=== PATIENT | female | born 1990 | race American Indian/Alaskan Native ===

== ENCOUNTER 2019-11-20 13:48 | Emergency (ER) | payer MEDICAID ==
[2019-11-20 14:15] VITALS: BP 103/64
[2019-11-20 15:51] LABS: Basophils % (Auto) 0.5 % (0.0-1.8); Eosinophils # (Auto) 0.1 K/mm3 (0.0-0.4); Eosinophils % (Auto) 1.1 % (0.0-4.3); Hematocrit 41.9 % (30.3-42.9); Hemoglobin 14.4 gm/dl (10.1-14.3); Lymphocytes # (Auto) 1.9 K/mm3 (1.2-5.4); Lymphocytes % (Auto) 27.3 % (13.4-35.0); Mean Corpuscular HGB Conc 34 % (30-34); Mean Corpuscular Volume 96 fl (79-97); Monocytes # (Auto) 0.7 K/mm3 (0.0-0.8); Monocytes % (Auto) 10.1 % (0.0-7.3); Platelet Count 229 K/mm3 (140-440); Red Blood Count 4.37 M/mm3 (3.65-5.03); Red Cell Distribution Width 13.1 % (13.2-15.2)
[2019-11-20] MEDS ORDERED: ONDANSETRON 4 MG/2 ML INJ IV ONE (16:30)
[2019-11-20] MEDS ORDERED: SODIUM CHLORIDE 0.9% 1000 ML 1,000 ML IV ONE (16:30)
--- NOTE | 2019-11-20 16:36 | Emergency Department Report ---
HPI - HPI HPI: Room 24 The patient is a 29-year-old female present with a chief complaint of vaginal bleeding. The patient states she is approximately 7 weeks when she decided to have an elective . The patient states 2 days ago she was given methotrexate for an elective . The patient states later that night she developed nausea vomiting and vaginal bleeding intermittently. Patient states she was passing large clots of blood and has been going through approximately 6-7 pads per day. The patient states this morning she developed lower abdominal cramping nausea and vomiting. The patient states she had an ultrasound performed at the clinic prior to the methotrexate and her was intrauterine. <SHARA BOOTHE - Last Filed: 11/20/19 16:31> <AMBROSIO GOLD III - Last Filed: 11/20/19 21:13> - General Chief Complaint: Vaginal Bleeding Time Seen by Provider: 11/20/19 16:18 ED Past Medical Hx - Past Medical History Previous Medical History?: No - Surgical History Past Surgical History?: Yes Hx Breast Surgery: Yes - Family History Family history: no significant - Social History Smoking Status: Current Some Day Smoker Substance Use Type: None (Denies illicit drug use) <SHARA BOOTHE - Last Filed: 11/20/19 16:31> <AMBROSIO GOLD III - Last Filed: 11/20/19 21:13> - Medications Home Medications: Home Medications Medication Instructions Recorded Confirmed Last Taken Type Ondansetron [Zofran Odt] 4 mg PO Q6HR PRN #20 tab.rapdis 11/20/19 Unknown Rx Pnv No.121/Iron/Folic Acid 1 each PO DAILY 30 Days #30 tablet 11/20/19 Unknown Rx [ Multivitamin Tablet] ED Review of Systems ROS: Stated complaint: TROUBLE BREATHING/VAG BLEED Other details as noted in HPI Constitutional: chills, fever (Subjective) Respiratory: no symptoms reported Endocrine: no symptoms reported Gastrointestinal: abdominal pain, nausea, vomiting Genitourinary: abnormal menses <SHARA BOOTHE - Last Filed: 11/20/19 16:31> ROS: Stated complaint: TROUBLE BREATHING/VAG BLEED Other details as noted in HPI <AMBROSIO GOLD III - Last Filed: 11/20/19 21:13> Physical Exam - Physical Exam Vital Signs: Vital Signs 11/20/19 14:09 Temperature 97.9 F Pulse Rate 72 Respiratory 18 Rate Blood Pressure 103/64 O2 Sat by Pulse 99 Oximetry Physical Exam: GENERAL: The patient is well-developed well-nourished female sitting in room not appearing to be in acute distress. [] HEENT: Normocephalic. Atraumatic. Extraocular motions are intact. Patient has moist mucous membranes. NECK: Supple. Trachea midline CHEST/LUNGS: Clear to auscultation. There is no respiratory distress noted. HEART/CARDIOVASCULAR: Regular. There is no tachycardia. There is no gallop rub or murmur. ABDOMEN: Abdomen is soft, with tenderness to palpation in the left lower quadrant, suprapubic and right lower quadrant. There is no rebound or guarding. Patient has normal bowel sounds. There is no abdominal distention. SKIN: There is no rash. There is no edema. There is no diaphoresis. NEURO: The patient is awake, alert, and oriented. The patient is cooperative. The patient has normal speech and gait MUSCULOSKELETAL: There is no evidence of acute injury. <SHARA BOOTHE K - Last Filed: 11/20/19 16:31> - Physical Exam Vital Signs: Vital Signs 11/20/19 14:09 Temperature 97.9 F Pulse Rate 72 Respiratory 18 Rate Blood Pressure 103/64 O2 Sat by Pulse 99 Oximetry <AMBROSIO GOLD III - Last Filed: 11/20/19 21:13> ED Course Vital Signs 11/20/19 14:09 Temperature 97.9 F Pulse Rate 72 Respiratory 18 Rate Blood Pressure 103/64 O2 Sat by Pulse 99 Oximetry <SHARA BOOTHE - Last Filed: 11/20/19 16:31> Vital Signs 11/20/19 14:09 Temperature 97.9 F Pulse Rate 72 Respiratory 18 Rate Blood Pressure 103/64 O2 Sat by Pulse 99 Oximetry - Reevaluation(s) Reevaluation #1: Patient's care signed out to me from previous physician at 8 PM. I discussed all results and clinical findings with patient. I discussed plan of care with patient. Patient agrees with plan of care. Patient is stable for discharge. Patient will be discharged home. Patient given discharge instructions. Patient voiced understanding of discharge instructions. 11/20/19 21:05 <AMBROSIO GOLD III Last Filed: 11/20/19 21:13> ED Medical Decision Making - Lab Data Result diagrams: 11/20/19 15:09 - Differential Diagnosis Incomplete <SHARA BOOTHE - Last Filed: 11/20/19 16:31> - Lab Data Result diagrams: 11/20/19 15:09 - Radiology Data Radiology results: report reviewed Early obstetrical ultrasound INDICATION: 8 week 1 day , methotrexate therapy 2 days ago, vaginal bleeding TECHNIQUE: Transabdominal and endovaginal COMPARISON: None FINDINGS: Early intrauterine is noted with yolk sac and pole se en. heart rate was documented at 160 bpm. Estimated gestational age by crown-rump length is 8 weeks 0 days corres ponding to the clinical dating. No obvious implantational bleed is seen. No ob vious abnormalities are noted of the fetus or sac. Right ovary measures 4.3 cm in length and shows small follicular-type cysts. Left ovary measures 4.5 cm in length and shows small follicular-type cysts. Flow is noted in both ovaries. No adnexal masses are seen. Only a trace of free fluid is noted. IMPRESSION: Early intrauterine as above without obvious abnormality <AMBROSIO GOLD III - Last Filed: 11/20/19 21:13> Critical care attestation.: If time is entered above; I have spent that time in minutes in the direct care of this critically ill patient, excluding procedure time. <CHEVY BOOTHEKE Elizabeth - Last Filed: 11/20/19 16:31> Critical care attestation.: If time is entered above; I have spent that time in minutes in the direct care of this critically ill patient, excluding procedure time. <OLIVERMARY FERNIEAMBROSIO - Last Filed: 11/20/19 21:13> ED Disposition <TLSHARA Elizabeth - Last Filed: 11/20/19 16:31> Is pt being admited?: No Does the pt Need Aspirin: No Time of Disposition: 21:11 <CINTIAAMBROSIO EVANS III - Last Filed: 11/20/19 21:13> Clinical Impression: Incomplete , Nausea and vomiting during prior to 22 weeks gestation Qualifiers: Weeks of gestation: less than 8 weeks Qualified Code(s): Z3A.01 - Less than 8 weeks gestation of Nausea & vomiting Qualifiers: Vomiting type: unspecified Vomiting Intractability: non-intractable Qualified Code(s): R11.2 - Nausea with vomiting, unspecified Disposition: DC-01 TO HOME OR SELFCARE Condition: Stable Instructions: Spontaneous Miscarriage (ED), Dilation and Curettage (ED) Additional Instructions: Patient to follow-up with primary care in 2 to 3 days. Patient to follow-up with [facility]PER[facility] or clinic in 2 to 3 days. Patient to rest. Patient to increase water. Patient to avoid strenuous exercise or heavy lifting until cleared by [facility]ING MACHINE OPERATOR. Patient to take Tylenol or ibuprofen as needed for pain. Patient to continue medications as instructed by her clinic. Patient to return to the ER if condition worsens, changes or new symptoms arise. Prescriptions: Pnv No.121/Iron/Folic Acid [ Multivitamin Tablet] 1 each PO DAILY 30 Days #30 tablet Ondansetron [Zofran Odt] 4 mg PO Q6HR PRN #20 tab.rapdis PRN Reason: Nausea And Vomiting Referrals: SEE HANSON MD [Primary Care Provider] - 2-3 Days KWAKU STALEY MD [Staff Physician] - 2-3 Days Forms: Methotrexate D/C Instructions
[2019-11-20] MEDS ORDERED: fentaNYL 100 MCG/2 ML INJ IV ONE (16:50)
--- NOTE | 2019-11-20 20:15 | Ultrasound Report ---
Early obstetrical ultrasound INDICATION: 8 week 1 day , methotrexate therapy 2 days ago, vaginal bleeding TECHNIQUE: Transabdominal and endovaginal COMPARISON: None FINDINGS: Early intrauterine is noted with yolk sac and pole seen. heart rate w as documented at 160 bpm. Estimated gestational age by crown-rump length is 8 weeks 0 days correspond ing to the clinical dating. No obvious implantational bleed is seen. No obvious abnormalities are not ed of the fetus or sac. Right ovary measures 4.3 cm in length and shows small follicular-type cysts. Left ovary measures 4.5 cm in length and shows small follicular-type cysts. Flow is noted in both ovaries. No adnexal masses are seen. Only a trace of free fluid is noted. IMPRESSION: Early intrauterine as above without obvious abnormality Signer Name: Manny Dunlap MD Signed: 11/20/2019 8:10 PM Workstation Name: [id number]
== END 2019-11-20 21:23 | disposition home or self-care (01) ==
LOC: ED 13:48
DX: O03.4 Incomplete spontaneous abortion without complication (principal); O21.8 Other vomiting complicating pregnancy; F17.200 Nicotine dependence, unspecified, uncomplicated; Z98.890 Other specified postprocedural states; Z79.899 Other long term (current) drug therapy; Z3A.08 8 weeks gestation of pregnancy
CPT/HCPCS: 36415; 76801; 76817; 84702; 85025; 86900; 86901; 96361; 96374; 96375; 99284; J2405; J3010; J7030

== ENCOUNTER 2020-07-29 21:24 | Emergency (ER) | payer MEDICAID ==
[2020-07-29 23:26] VITALS: BP 113/69
[2020-07-29 23:49] LABS: Bacteria,Urine 1+ /HPF (Negative); Bilirubin,Urine NEG (Negative); Blood,Urine NEG (Negative); Color,Urine Yellow (Yellow); Mucus,Urine FEW /HPF; Protein,Urine <15 mg/dL mg/dL (Negative)
[2020-07-29] MEDS ORDERED: SODIUM CHLORIDE 0.9% 1000 ML 1,000 ML IV ONE (23:57)
[2020-07-29] MEDS ORDERED: ONDANSETRON 4 MG/2 ML INJ IV ONE (23:57)
[2020-07-30 00:11] LABS: Basophils % (Auto) 0.4 % (0.0-1.8); Eosinophils # (Auto) 0.4 K/mm3 (0.0-0.4); Eosinophils % (Auto) 4.9 % (0.0-4.3); Hematocrit 41.2 % (30.3-42.9); Hemoglobin 14.2 gm/dl (10.1-14.3); Lymphocytes # (Auto) 3.2 K/mm3 (1.2-5.4); Mean Corpuscular HGB Conc 34 % (30-34); Mean Corpuscular Volume 95 fl (79-97); Monocytes # (Auto) 0.8 K/mm3 (0.0-0.8); Monocytes % (Auto) 9.2 % (0.0-7.3); Platelet Count 227 K/mm3 (140-440); Red Blood Count 4.32 M/mm3 (3.65-5.03)
[2020-07-30 00:30] LABS: Alanine Aminotransferase 17 units/L (7-56); Albumin 4.5 g/dL (3.9-5); Blood Urea Nitrogen 8 mg/dL (7-17); Calcium 9.4 mg/dL (8.4-10.2); Hemolysis Index 1
[2020-07-30 00:36] LABS: BUN/Creatinine Ratio 16
--- NOTE | 2020-07-30 01:44 | Emergency Department Report ---
ED N/V/D HPI - General Chief complaint: Abdominal Pain Stated complaint: WEAKNESS/NAUSEA/VOMITING Time Seen by Provider: 07/29/20 23:48 Source: patient Mode of arrival: Ambulatory Limitations: No Limitations - History of Present Illness Initial comments: Patient is a 30-year-old -[place] female who presents for abdominal pain and cramping x3 weeks, patient denies fever or chills. Last menstrual cycle 1 month ago. Patient denies vaginal bleeding. MD complaint: nausea, vomiting Onset/Timin -: week(s) - Related Data Previous Rx's Medication Instructions Recorded Last Taken Type Ondansetron [Zofran Odt] 4 mg PO Q6HR PRN #20 tab.rapdis 11/20/19 Unknown Rx Pnv No.121/Iron/Folic Acid 1 each PO DAILY 30 Days #30 tablet 11/20/19 Unknown Rx [ Multivitamin Tablet] CLOTRIMAZOLE 1% Vag Cream [Mycelex 1 applicatio VG QHS #1 tube 07/30/20 Unknown Rx Vag cream] Allergies Allergy/AdvReac Type Severity Reaction Status Date / Time No Known Allergies Allergy Unverified 11/20/19 14:08 ED Review of Systems ROS: Stated complaint: WEAKNESS/NAUSEA/VOMITING Other details as noted in HPI Constitutional: denies: chills, fever, malaise Eyes: denies: eye pain, eye discharge, vision change ENT: denies: ear pain, throat pain, congestion Respiratory: denies: cough, shortness of breath, wheezing Cardiovascular: denies: chest pain, palpitations Endocrine: no symptoms reported Gastrointestinal: nausea, vomiting, constipation Genitourinary: denies: urgency, dysuria, frequency, hematuria, discharge Musculoskeletal: denies: back pain, joint swelling, arthralgia Skin: denies: rash, lesions Neurological: denies: headache, weakness, paresthesias Psychiatric: denies: anxiety, depression Hematological/Lymphatic: as per HPI ED Past Medical Hx - Past Medical History Previous Medical History?: No - Surgical History Past Surgical History?: Yes Hx Breast Surgery: Yes - Social History Smoking Status: Never Smoker Substance Use Type: None - Medications Home Medications: Home Medications Medication Instructions Recorded Confirmed Last Taken Type Ondansetron [Zofran Odt] 4 mg PO Q6HR PRN #20 tab.rapdis 11/20/19 Unknown Rx Pnv No.121/Iron/Folic Acid 1 each PO DAILY 30 Days #30 tablet 11/20/19 Unknown Rx [ Multivitamin Tablet] CLOTRIMAZOLE 1% Vag Cream [Mycelex 1 applicatio VG QHS #1 tube 07/30/20 Unknown Rx Vag cream] ED Physical Exam - General Limitations: No Limitations General appearance: alert, in no apparent distress - Head Head exam: Present: atraumatic, normocephalic - Eye Eye exam: Present: normal appearance, PERRL, EOMI Pupils: Present: normal accommodation - ENT ENT exam: Present: normal orophraynx, mucous membranes moist, normal external ear exam - Neck Neck exam: Present: normal inspection, full ROM. Absent: tenderness, meningismus, lymphadenopathy, thyromegaly - Respiratory Respiratory exam: Present: normal lung sounds bilaterally, chest wall tenderness. Absent: respiratory distress, wheezes, stridor - Cardiovascular Cardiovascular Exam: Present: regular rate, normal rhythm, normal heart sounds - GI/Abdominal GI/Abdominal exam: Present: soft, normal bowel sounds. Absent: distended, tenderness, guarding, rebound, rigid, bruit, hernia - Rectal Rectal exam: Present: deferred - Extremities Exam Extremities exam: Present: normal inspection, full ROM. Absent: tenderness, normal capillary refill - Back Exam Back exam: Present: normal inspection, full ROM, tenderness. Absent: CVA tenderness (R), CVA tenderness (L) - Neurological Exam Neurological exam: Present: alert, oriented X3, CN II-XII intact, normal gait - Psychiatric Psychiatric exam: Present: normal affect, normal mood - Skin Skin exam: Present: warm ED Course Vital Signs 07/29/20 23:20 Temperature 97.4 F L Pulse Rate 79 Respiratory 18 Rate Blood Pressure 113/69 O2 Sat by Pulse 100 Oximetry ED Medical Decision Making - Lab Data Result diagrams: 07/29/20 23:40 07/29/20 23:40 Labs 07/29/20 07/29/20 07/29/20 23:40 23:40 23:40 WBC 8.8 RBC 4.32 Hgb 14.2 Hct 41.2 MCV 95 MCH 33 H MCHC 34 RDW 13.0 L Plt Count 227 Lymph % (Auto) 36.0 H [place] % (Auto) 9.2 H Eos % (Auto) 4.9 H Baso % (Auto) 0.4 Lymph # (Auto) 3.2 [place] # (Auto) 0.8 Eos # (Auto) 0.4 Baso # (Auto) 0.0 Seg Neutrophils % 49.5 Seg Neutrophils # 4.4 Sodium 137 Potassium 4.1 Chloride 100.9 Carbon Dioxide 24 Anion Gap 16 BUN 8 Creatinine 0.5 L Estimated GFR > 60 BUN/Creatinine Ratio 16 Glucose 77 Calcium 9.4 Total Bilirubin 0.20 AST 16 ALT 17 Alkaline Phosphatase 41 Total Protein 7.1 Albumin 4.5 Albumin/Globulin Ratio 1.7 Lipase 17 HCG, Qual Positive Urine Color Urine Turbidity Urine pH Ur Specific [place] Urine Protein Urine Glucose (UA) Urine Ketones Urine Blood Urine Nitrite Urine Bilirubin Urine Urobilinogen Ur Leukocyte Esterase Urine WBC (Auto) Urine RBC (Auto) U Epithel Cells (Auto) Urine Bacteria (Auto) Urine Mucus Urine Yeast (Budding) 07/29/20 Unknown WBC RBC Hgb Hct MCV MCH MCHC RDW Plt Count Lymph % (Auto) [place] % (Auto) Eos % (Auto) Baso % (Auto) Lymph # (Auto) [place] # (Auto) Eos # (Auto) Baso # (Auto) Seg Neutrophils % Seg Neutrophils # Sodium Potassium Chloride Carbon Dioxide Anion Gap BUN Creatinine Estimated GFR BUN/Creatinine Ratio Glucose Calcium Total Bilirubin AST ALT Alkaline Phosphatase Total Protein Albumin Albumin/Globulin Ratio Lipase HCG, Qual Urine Color Yellow Urine Turbidity Slightly-cloudy Urine pH 6.0 Ur Specific Alfred 1.027 Urine Protein <15 mg/dl Urine Glucose (UA) Neg Urine Ketones Neg Urine Blood Neg Urine Nitrite Neg Urine Bilirubin Neg Urine Urobilinogen 2.0 Ur Leukocyte Esterase Neg Urine WBC (Auto) 1.0 Urine RBC (Auto) 1.0 U Epithel Cells (Auto) 5.0 Urine Bacteria (Auto) 1+ Urine Mucus Few Urine Yeast (Budding) Few - Radiology Data Radiology results: report reviewed, image reviewed ULTRASOUND OBSTETRIC INDICATION / CLINICAL INFORMATION: abd pain pos preg. Clinical Gestational Age (GA): Unknown TECHNIQUE: Transabdominal. Transvaginal COMPARISON: None available. FINDINGS: GESTATIONAL SAC: Well-defined oval shape and intrauterine in location. There is a small subchorionic hemorrhage inferior to the gestational sac measuring 10 x 4 x 8 mm. YOLK SAC: No significant abnormality. EMBRYO/FETUS: No significant abnormality. - [place]-Rump Length = 1.8 cm = 8 weeks, 2 day(s). - Heart Rate, beats per minute (if present) = 158 ADNEXA: Left ovary is unremarkable. The right ovary contains a complex appearing corpus luteal cyst measuring 1.8 x 1.6 cm. FREE FLUID: Trace free fluid is present in the cul-de-sac. ADDITIONAL FINDINGS: None. IMPRESSION: 1. Single, living intrauterine with estimated sonographic age of 8 weeks, 2 day(s). 2. 10 mm inferior subchorionic hemorrhage. Signer Name: Anabella Lopez MD Signed: 07/30/2020 3:30 AM Workstation Name: [id number] Transcribed By: JR Dictated By: Anabella Lopez MD Electronically Authenticated By: Anabella Loepz MD Signed Date/Time: 07/30/20329 DD/ 6 TD/TT: - Medical Decision Making OB US: Single, living intrauterine with estimated sonographic age of 8 weeks, 2 day(s). 2. 10 mm inferior subchorionic hemorrhage. , ua;: pos duarte, leuk, yeast. plan trx for vaginitis, follow up with OBGYN in 2-3days, return to emergency if symptoms worsen. Critical care attestation.: If time is entered above; I have spent that time in minutes in the direct care of this critically ill patient, excluding procedure time. ED Disposition Clinical Impression: Qualifiers: Weeks of gestation: 8 weeks Qualified Code(s): Z3A.08 - 8 weeks gestation of Urinary tract infection during Qualifiers: Trimester: first trimester Qualified Code(s): O23.41 - Unspecified infection of urinary tract in , first trimester Disposition: DC-01 TO HOME OR SELFCARE Is pt being admited?: No Does the pt Need Aspirin: No Condition: Stable Instructions: Abdominal Pain (ED), First Trimester of , [id number], Urinary Tract Infection, Adult, [id number] Additional Instructions: Take medications as prescribed. Follow-up with [facility] in 2 to 3 days. Return to emergency should symptoms worsen. Prescriptions: CLOTRIMAZOLE 1% Vag Cream [Mycelex Vag cream] 1 applicatio VG QHS #1 tube Referrals: SEE HANSON MD [Primary Care Provider] - 3-5 Days KIERAN KIRK MD [Staff Physician] - 3-5 Days Forms: Work/School Release Form(ED) Time of Disposition: 04:02
--- NOTE | 2020-07-30 03:34 | Ultrasound Report ---
ULTRASOUND OBSTETRIC INDICATION / CLINICAL INFORMATION: abd pain pos preg. Clinical Gestational Age (GA): Unknown TECHNIQUE: Transabdominal. Transvaginal COMPARISON: None available. FINDINGS: GESTATIONAL SAC: Well-defined oval shape and intrauterine in location. There is a small subchorionic hemorrhage inferior to the gestational sac measuring 10 x 4 x 8 mm. YOLK SAC: No significant abnormality. EMBRYO/FETUS: No significant abnormality. - [place]-Rump Length = 1.8 cm = 8 weeks, 2 day(s). - Heart Rate, beats per minute (if present) = 158 ADNEXA: Left ovary is unremarkable. The right ovary contains a complex appearing corpus luteal cyst m easuring 1.8 x 1.6 cm. FREE FLUID: Trace free fluid is present in the cul-de-sac. ADDITIONAL FINDINGS: None. IMPRESSION: 1. Single, living intrauterine with estimated sonographic age of 8 weeks, 2 day(s). 2. 10 mm inferior subchorionic hemorrhage. Signer Name: Anabella Lopez MD Signed: 07/30/2020 3:30 AM Workstation Name: [id number]
--- NOTE | 2020-07-30 03:34 | Ultrasound Report ---
ULTRASOUND OBSTETRIC INDICATION / CLINICAL INFORMATION: abd pain pos preg. Clinical Gestational Age (GA): Unknown TECHNIQUE: Transabdominal. Transvaginal COMPARISON: None available. FINDINGS: GESTATIONAL SAC: Well-defined oval shape and intrauterine in location. There is a small subchorionic hemorrhage inferior to the gestational sac measuring 10 x 4 x 8 mm. YOLK SAC: No significant abnormality. EMBRYO/FETUS: No significant abnormality. - [place]-Rump Length = 1.8 cm = 8 weeks, 2 day(s). - Heart Rate, beats per minute (if present) = 158 ADNEXA: Left ovary is unremarkable. The right ovary contains a complex appearing corpus luteal cyst m easuring 1.8 x 1.6 cm. FREE FLUID: Trace free fluid is present in the cul-de-sac. ADDITIONAL FINDINGS: None. IMPRESSION: 1. Single, living intrauterine with estimated sonographic age of 8 weeks, 2 day(s). 2. 10 mm inferior subchorionic hemorrhage. Signer Name: Anabella Lopez MD Signed: 07/30/2020 3:30 AM Workstation Name: [id number]
== END 2020-07-30 04:15 | disposition home or self-care (01) ==
LOC: ED 21:24
DX: O23.41 Unspecified infection of urinary tract in pregnancy, first trimester (principal); Z79.899 Other long term (current) drug therapy; Z98.890 Other specified postprocedural states; Z3A.08 8 weeks gestation of pregnancy
CPT/HCPCS: 36415; 76801; 76817; 80053; 81001; 83690; 84703; 85025; 96361; 96374; 99284; J2405; J7030